=== PATIENT | female | born 1955 | race African-American/Black ===

== ENCOUNTER 2023-11-22 13:00 | Emergency (ER) | payer OTHER ==
[~2023-11-22] VITALS: Ht 157.5 cm; Wt 72.7 kg
[2023-11-22] MEDS ORDERED: DEXTROSE (50%) 50ML SYRG IV ONE (13:09)
[2023-11-22] MEDS ORDERED: EPINEPHrine HCL 1 MG/10 ML SYRG IV ONE (13:09)
[2023-11-22] MEDS ORDERED: SODIUM BICARB 8.4% 50Meq/50ml SYR Vial IV ONE (13:09)
[2023-11-22 13:11] VITALS: BP 220/156; PULSE 102; RESP 31
== END 2023-11-22 13:11 ==
LOC: EDBD 13:08 → ER 13:08
DX: I46.9 Cardiac arrest, cause unspecified (principal); R41.82 Altered mental status, unspecified; R06.89 Other abnormalities of breathing; E11.22 Type 2 diabetes mellitus with diabetic chronic kidney disease; N18.6 End stage renal disease; Z88.6 Allergy status to analgesic agent; Z88.2 Allergy status to sulfonamides
CPT/HCPCS: 31500; 92950; 99285; J0171; J7042